=== PATIENT | male | born 2000 | race African-American/Black ===

== ENCOUNTER 2021-11-28 22:40 | Emergency (ER) | payer OTHER ==
[~2021-11-28] VITALS: Ht 180.3 cm; Wt 66.6 kg
[2021-11-29 00:11] VITALS: BP 120/78
== END 2021-11-29 00:05 | disposition home or self-care (01) ==
LOC: M ED 22:40
DX: K62.5 Hemorrhage of anus and rectum (principal); R10.9 Unspecified abdominal pain

== ENCOUNTER 2022-07-21 07:03 | Day surgery (SDC) | payer OTHER ==
[~2022-07-21] VITALS: Ht 180.3 cm; Wt 66.7 kg
[2022-07-21] MEDS ORDERED: KETOROLAC 60MG 2ML VIAL As Ordered ONE (08:35)
[2022-07-21] MEDS ORDERED: LIDOCAINE 2% 100MG/5ML SDV (FOR ANES.) As Ordered ONE (08:35)
[2022-07-21] MEDS ORDERED: propofoL 200 MG/20 ML VIAL As Ordered ONE (08:35)
[2022-07-21] MEDS ORDERED: ONDANSETRON 4MG 2ML VIAL As Ordered ONE (08:35)
[2022-07-21] MEDS ORDERED: MIDAZOLAM INJ 2MG/2ML VIAL As Ordered ONE (08:36)
[2022-07-21] MEDS ORDERED: fentaNYL 100 MCG/2 ML INJECTION As Ordered ONE (08:36)
[2022-07-21] MEDS ORDERED: BUPIVACAINE HCL 0.25% 30ML VIAL As Ordered ONE (08:38)
[2022-07-21] MEDS ORDERED: BACITRACIN OINTMENT 30GM TUBE As Ordered ONE (08:38)
[2022-07-21] MEDS ORDERED: SUGAMMADEX SODIUM 500 MG/5 ML VIAL (BRIDION) As Ordered ONE (09:59)
[2022-07-21] MEDS ORDERED: oxyCODONE 5MG TAB PO PRN (10:05)
[2022-07-21] MEDS ORDERED: ONDANSETRON 4MG 2ML VIAL IV PRN (10:05)
[2022-07-21] MEDS ORDERED: LR 1,000 ML IV SCH (10:05)
[2022-07-21] MEDS ORDERED: PERC5TAB12 PO (10:20)
[2022-07-21] MEDS: fentaNYL 100 MCG/2 ML INJECTION IV PRN ×2 (10:52→11:07)
[2022-07-21 12:19] VITALS: BP 128/62
== END 2022-07-21 12:19 | disposition home or self-care (01) ==
LOC: M SDC 07:03
PROVIDERS: ATTEND Orthopaedic Surgery Hand Surgery
DX: M67.432 Ganglion, left wrist (principal)
CPT/HCPCS: 25111; 88305; J1100; J2405

== ENCOUNTER 2022-08-10 10:04 | Emergency (ER) | payer OTHER ==
[~2022-08-10] VITALS: Ht 180.3 cm; Wt 68.2 kg
[~2022-08-10 10:04] MED LIST: PERC5TAB12 PO
[2022-08-10] MEDS ORDERED: IBUPROFEN 600MG TAB PO ONE (11:45)
[2022-08-10] MEDS ORDERED: IBUP-1022 PO (11:57)
[2022-08-10 12:05] VITALS: BP 128/74
== END 2022-08-10 12:14 | disposition home or self-care (01) ==
LOC: EDBD 10:04 → M ED 10:04
DX: S40.011A Contusion of right shoulder, initial encounter (principal); V89.2XXA Person injured in unspecified motor-vehicle accident, traffic, initial encounter

== ENCOUNTER → 2023-11-21 | Outpatient (REF) ==
[~2023-11-21] MED LIST changes: +IBUP-1022 PO
== END ==
LOC: M PLAIMG 09:43
PROVIDERS: ATTEND Internal Medicine
DX: M79.605 Pain in left leg (principal); M79.604 Pain in right leg